=== PATIENT | male | born 1930 | race Caucasian/White ===

== ENCOUNTER 2017-11-11 22:50 | Emergency (ER) | payer MEDICARE, OTHER ==
[2017-11-11] MEDS ORDERED: Nitroglycerin 0.4 MG TAB (25 Tab Bottle) ONE (23:22)
[2017-11-11 23:27] LABS: #Basophils 0.1 thou/uL (0.0-0.2); #Eosinphils 0.3 thou/uL (0.0-0.7); #Lymphocytes 2.3 thou/uL (1.20-3.40); #Monocytes 0.6 thou/uL (0.11-0.59); #Neutrophils 4.2 thou/uL (1.40-6.50); %Eosinophils 4.2 % (0.0-10.0); %Lymphocytes 30.6 % (21.0-51.0); %Monocytes 7.9 % (0.0-10.0); %Neutrophils 56.3 % (42.0-75.0); Hemoglobin 10.9 g/dL (14.0-18.0); Mean Corpuscular Hemoglobin 31.3 pg (27.0-31.0); Mean Corpuscular Volume 94.8 fl (80.0-94.0); Mean Platelet Volume 6.4 fL (7.4-10.4); Platelet Count 200 thou/uL (130-400); RBC Distribution Width 12.1 % (11.5-14.5); Red Blood Cell (RBC) Count 3.49 mill/uL (4.70-6.10); White Blood Cell (WBC) Count 7.4 thou/uL (4.8-10.8)
--- NOTE | 2017-11-11 23:31 | RAD ---
PORTABLE CHEST: 11/11/17 HISTORY: Chest pain. Lung humphries are clear. Heart and mediastinum are unremarkable. IMPRESSION: No acute finding. POS: [facility]
[2017-11-11 23:50] LABS: Anion Gap 13 mmol/L (10-20); BUN (Urea Nitrogen) 26 mg/dL (8.4-25.7); Calc. Creatinine Clearance 0 mL/min (70-130); Carbon Dioxide 25 mmol/L (23-31); Chloride 103 mmol/L (98-107); Estimated GFR-MDRD 61; Sodium 137 mmol/L (136-145)
[2017-11-11 23:51] LABS: ALT (SGPT) 13 U/L (8-55); AST (SGOT) 26 U/L (5-34); Albumin 4.1 g/dL (3.4-4.8); Alkaline Phosphatase 99 U/L (40-150); Bilirubin, Total 0.7 mg/dL (0.2-1.2); CK (CPK) 57 U/L (30-200); Calcium 9.6 mg/dL (7.8-10.44); Glucose 133 mg/dL (83-110); Lipase 43 U/L (8-78); Protein, Total 7.1 g/dL (5.8-8.1)
[2017-11-11 23:57] LABS: CKMB 0.7 ng/mL (0-6.6); Troponin I 0.017 ng/mL (< 0.028)
== END 2017-11-12 00:12 | disposition left against medical advice (07) ==
LOC: ERS 22:50
DX: R07.9 Chest pain, unspecified (principal); E78.5 Hyperlipidemia, unspecified; I10 Essential (primary) hypertension
CPT/HCPCS: 71045; 80053; 82553; 83690; 84484; 85025; 93005

== ENCOUNTER 2017-12-23 15:13 | Observation (INO) | payer MEDICARE, OTHER ==
[2017-12-23 15:33] LABS: #Basophils 0.1 thou/uL (0.0-0.2); #Eosinphils 0.2 thou/uL (0.0-0.7); #Lymphocytes 0.8 thou/uL (1.20-3.40); #Monocytes 0.3 thou/uL (0.11-0.59); %Basophils 1.1 % (0.0-1.0); %Eosinophils 4.6 % (0.0-10.0); %Lymphocytes 15.3 % (21.0-51.0); %Monocytes 5.8 % (0.0-10.0); %Neutrophils 73.2 % (42.0-75.0); Mean Corpuscular HGB CONC 33.7 g/dL (32.0-36.0); Mean Corpuscular Hemoglobin 30.7 pg (27.0-31.0); Mean Corpuscular Volume 91.1 fl (80.0-94.0); Mean Platelet Volume 5.7 fL (7.4-10.4); Platelet Count 226 thou/uL (130-400); RBC Distribution Width 12.7 % (11.5-14.5); White Blood Cell (WBC) Count 5.5 thou/uL (4.8-10.8)
[2017-12-23 15:57] LABS: ALT (SGPT) 28 U/L (8-55); AST (SGOT) 68 U/L (5-34); Albumin 3.9 g/dL (3.4-4.8); Alkaline Phosphatase 334 U/L (40-150); Anion Gap 14 mmol/L (10-20); BUN (Urea Nitrogen) 26 mg/dL (8.4-25.7); Bilirubin, Total 0.8 mg/dL (0.2-1.2); CK (CPK) 235 U/L (30-200); Calc. Creatinine Clearance 0 mL/min (70-130); Calcium 8.9 mg/dL (7.8-10.44); Carbon Dioxide 26 mmol/L (23-31); Chloride 97 mmol/L (98-107); Estimated GFR-MDRD 70; Glucose 116 mg/dL (83-110); Potassium 3.3 mmol/L (3.5-5.1); Protein, Total 7.9 g/dL (5.8-8.1); Sodium 134 mmol/L (136-145)
[2017-12-23 16:01] LABS: CKMB 0.9 ng/mL (0-6.6); Troponin I 0.015 ng/mL (< 0.028)
[2017-12-23] MEDS ORDERED: Potassium Chloride 20 MEQ TAB ONE (17:29)
[2017-12-23 19:52] LABS: Bilirubin Negative (Negative); Blood, Urine Trace (Negative); Clarity CLEAR (Clear); Glucose, Urine (Dipstick) Negative (Negative); Leukocyte Negative (Negative); Nitrite Negative (Negative); Protein, Urine (Dipstick) 30 mg/dL (Neg-Trace); Specific Gravity, Urine 1.013 (1.002-1.036)
[2017-12-23 19:54] LABS: Bacteria/HPF None Seen HPF (None Seen); Hyaline Casts/LPF 0-3 HYALINE CAST LPF (0-3 Hyaline); RBC/HPF 0-3 HPF (0-3); Squamous Epithelial 0-3 HPF (0-3); WBC/HPF 0-3 HPF (0-3)
[2017-12-23 19:58] LABS: Renal Epithelial None Seen HPF (0-3); Transitional Epithelial NONE SEEN HPF (0-3)
[2017-12-23] MEDS ORDERED: Sodium Chloride 0.9% 1,000 ML IV SCH (21:30)
[2017-12-23 23:37] VITALS: BMI 21.7
[2017-12-24] MEDS ORDERED: Milk Of Magnesia 30 ML UDCUP PO PRN (00:05)
[2017-12-24] MEDS ORDERED: Mag-Al 1200 mg/1200 mg/30 ML UDCUP PO PRN (00:05)
[2017-12-24] MEDS ORDERED: Ondansetron HCl/PF 4 MG/2 ML Vial IVP PRN (00:05)
[2017-12-24] MEDS ORDERED: Acetaminophen 325 MG TAB PO PRN (00:05)
[2017-12-24] MEDS ORDERED: Senokot 8.6 MG TAB PO PRN (00:05)
[2017-12-24] MEDS ORDERED: Loperamide HCl 2 MG CAP PO PRN (00:05)
[2017-12-24] MEDS ORDERED: HYDROcodone/Acetaminophen 5/325 mg Tablet PO PRN (00:05)
[2017-12-24] MEDS: Sodium Chloride 0.9% 1,000 ML IV SCH ×2 (00:30→12:20)
--- NOTE | 2017-12-24 03:32 | HP ---
DATE OF SERVICE: 12/23/2017 PRIMARY CARE PHYSICIAN: [facility] call admission. REASON FOR ADMISSION: Generalized weakness. HISTORY OF PRESENT ILLNESS: An 87-year-old male who is a very poor historian, who was brought to [facility] room for generalized weakness. Paramedics brought him here. He has a history of bladder canc er and the patient is getting radiation therapy. The patient was hypertensive when paramedics took h im from home. The patient has weight loss about 50 pounds. He has very poor appetite. He denies an y diarrhea. He denies any nausea or vomiting. He denies any fever or chills. He denies any chest p ain, palpitation, shortness of breath. He denies any UTI symptoms. He denies any constipation, diar ab. He denies any fall or trauma or syncope or loss of consciousness. He denies any pain anywhere in his body. REVIEW OF SYSTEMS: The following complete review of systems was negative, unless otherwise mentioned in the HPI or below: Constitutional: Weight loss or gain, ability to conduct usual activities. Skin: Rash, itching. Eyes: Double vision, pain. ENT/Mouth: Nose bleeding, neck stiffness, pain, tenderness. Cardiovascular: Palpitations, dyspnea on exertion, orthopnea. Respiratory: Shortness of breath, wheezing, cough, hemoptysis, fever or night sweats. Gastrointestinal: Poor appetite, abdominal pain, heartburn, nausea, vomiting, constipation, or diarr hea. Genitourinary: Urgency, frequency, dysuria, nocturia. Musculoskeletal: Pain, swelling. Neurologic/Psychiatric: Anxiety, depression. Allergy/Immunologic: Skin rash, bleeding tendency. Please see my HPI for pertinent positive and negative. All other review of systems reviewed and nega tive except as mentioned in the HPI. The review of system is limited because of his level of cogniti ve status. ALLERGIES: No known drug allergy. CURRENT HOME MEDICATIONS: Aspirin 81 mg p.o. daily, Crestor 10 mg p.o. daily, Corgard 20 mg p.o. kristel ly, Tylenol No. 3 one tablet p.o. q.6 hourly p.r.n. PAST MEDICAL HISTORY: Hypertension, dyslipidemia, history of bladder cancer. PAST SURGICAL HISTORY: Bladder cancer surgery. PAST PSYCHIATRIC HISTORY: Reviewed and negative. SOCIAL HISTORY: The patient drinks alcohol socially and occasionally. The patient denies any smokin g. He denies any other illicit drug abuse. FAMILY HISTORY: No strong family history of premature coronary artery disease, stroke or cancer. ALLERGIES: No known drug allergy. EMERGENCY ROOM COURSE: The patient was given potassium chloride 40 mEq p.o. and IV fluid. PHYSICAL EXAMINATION: VITAL SIGNS: On arrival, blood pressure 176/88, pulse 109, respiratory rate 20, temperature 98.4, sa turation 100% on room air, weight 77.1 kilograms. GENERAL: The patient is currently alert, awake, chronically ill, no obvious acute distress. HEAD: Normocephalic, atraumatic. EYES: Pupils are round and reactive to light. Extraocular muscle intact. ENT: Oropharynx within normal limits. Dry appearing mucous membranes. No oral lesion, no pharyngea l erythema, no exudate. NECK: Supple, no JVD, no thyromegaly, no carotid bruit, no meningeal signs of irritation. LUNGS: Clear to auscultation without any rhonchi or rales. CARDIAC: S1, S2 appears regular without any murmur. ABDOMEN: Soft, bowel sounds present, nontender, nondistended. No organomegaly, no mass, no suprapub ic tenderness. BACK: Unremarkable, no CVA tenderness. EXTREMITIES: Upper extremity, passive movement of all joints are normal. Lower extremities, no bushra a. Good peripheral pulsation. SKIN: No skin rash. HEMATOLOGICAL: No lymphadenopathy. PSYCHIATRIC: Normal affect. SIGNIFICANT LABORATORY DATA: 1. EKG showing sinus tachycardia, left ventricular hypertrophy. 2. CBC: WBC 5.5, hemoglobin 11.0, platelet 226. 3. CK 235 4. BMP: Sodium 134, potassium 3.3, chloride 97, carbon dioxide 26, anion gap 14, BUN 26, creatinine 1.01, glucose 116, calcium 8.9. 5. LFT: AST 68, alkaline phosphatase of 338, ALT 28, albumin 3.9, protein 7.9, bilirubin 0.8, calci um 8.9. BNP 35.4, CK-MB 0.9, troponin 0.015. ASSESSMENT AND PLAN: IMPRESSION: 1. Generalized weakness. 2. Hyponatremia. 3. Hypokalemia. 4. Elevated total CK. 5. Abnormal liver function test. 6. History of bladder cancer. 7. Hypertension. 8. Dyslipidemia. 9. Hypothyroidism. 10. Benign enlargement of prostate. 11. Dyslipidemia. PLAN: 1. Observation to medical floor. PT, OT evaluation. transition manager consultation for discharge planni ng. Resume intravenous fluid at 75 mL per hour. 2. Deep venous thrombosis prophylaxis not needed because we are expecting discharge in 24 hours. 3. Gastrointestinal prophylaxis. Pepcid 20 mg IV b.i.d. 4. Code status: The patient is FULL CODE. The patient does not have any surrogate decision maker a t this point. Disposition plan based on clinical course. We are expecting patient's stay in hospital 24-48 hours. Plan of care discussed with the patient in detail.
[2017-12-24 05:55] LABS: #Eosinphils 0.2 thou/uL (0.0-0.7); #Lymphocytes 0.8 thou/uL (1.20-3.40); #Monocytes 0.4 thou/uL (0.11-0.59); #Neutrophils 3.3 thou/uL (1.40-6.50); %Basophils 0.4 % (0.0-1.0); %Eosinophils 4.6 % (0.0-10.0); %Lymphocytes 16.8 % (21.0-51.0); %Monocytes 7.7 % (0.0-10.0); %Neutrophils 70.5 % (42.0-75.0); Hemoglobin 9.6 g/dL (14.0-18.0); Mean Corpuscular HGB CONC 33.2 g/dL (32.0-36.0); Mean Corpuscular Hemoglobin 30.4 pg (27.0-31.0); Mean Corpuscular Volume 91.3 fl (80.0-94.0); Platelet Count 211 thou/uL (130-400); RBC Distribution Width 12.7 % (11.5-14.5); Red Blood Cell (RBC) Count 3.18 mill/uL (4.70-6.10); White Blood Cell (WBC) Count 4.7 thou/uL (4.8-10.8)
[2017-12-24 06:16] LABS: Anion Gap 11 mmol/L (10-20); BUN (Urea Nitrogen) 17 mg/dL (8.4-25.7); Calc. Creatinine Clearance 63 mL/min (70-130); Calcium 7.8 mg/dL (7.8-10.44); Carbon Dioxide 25 mmol/L (23-31); Chloride 101 mmol/L (98-107); Estimated GFR-MDRD Greater than 90; Glucose 132 mg/dL (83-110); Potassium 3.5 mmol/L (3.5-5.1); Sodium 133 mmol/L (136-145)
[2017-12-24] MEDS: Aspirin 81 mg Enteric Coated Tablet PO SCH (09:03)
[2017-12-24] MEDS: Finasteride 5 MG TAB PO SCH (09:04)
[2017-12-24] MEDS: Nadolol 40 MG TAB PO SCH (09:04)
[2017-12-24] MEDS: Rosuvastatin 10 MG TAB PO SCH (09:05)
[2017-12-24] MEDS: Famotidine/PF 20 mg/2ml Vial SLOW IVP SCH ×2 (09:05→21:00)
--- NOTE | 2017-12-24 15:37 | EKG ---
Test Reason : Blood Pressure : / mmHG Vent. Rate : 105 BPM Atrial Rate : 105 BPM P-R Int : 138 ms QRS Dur : 080 ms QT Int : 352 ms P-R-T Axes : 029 -52 022 degrees QTc Int : 465 ms Sinus tachycardia Left axis deviation Minimal voltage criteria for LVH, may be normal variant Inferior infarct , age undetermined Abnormal ECG Confirmed by RACHELL FRANCES, UMAIR White ([id number]), film editor supervisor ZIGGY LESLIE ([id number]) on 12/24/2017 3:37:04 PM Referred By: Confirmed By:UMAIR LOVETT MD
--- NOTE | 2017-12-24 16:52 | PDOC.PN ---
- Subjective Encounter Start Date: 12/24/17 Encounter Start Time: 11:00 Patient seen and examined. No new complaints. No overnight events. Feels gen weak. - Objective Resuscitation Status: Resuscitation Status FULL:Full Resuscitation MAR Reviewed: Yes Vital Signs & Weight: Vital Signs (12 hours) Temp Pulse Resp BP Pulse Ox 12/24/17 16:15 97.8 F 80 20 169/81 H 96 12/24/17 12:06 98.3 F 79 24 H 177/84 H 97 12/24/17 08:05 98 F 107 H 24 H 12/24/17 07:48 98 F 107 H 24 H 161/80 H 93 L Weight Admit Weight 147 lb Weight 147 lb I&O: 12/23/17 12/24/17 12/25/17 06:59 06:59 06:59 Intake Total 270 Output Total 1 Balance 269 Result Diagrams: 12/24/17 05:16 12/24/17 05:16 Phys Exam - Physical Examination Constitutional: NAD Respiratory: no wheezing, no rhonchi Cardiovascular: RRR, no rub Gastrointestinal: soft, non-tender, positive bowel sounds Musculoskeletal: no edema Neurological: moves all 4 limbs (Feels gen weak.) Dx/Plan - Plan DVT proph w/SCDs IMPRESSION: 1. Generalized weakness - multifactorial 2. h/o bladder cancer 3. Electrolyte abn - hyponatremia/hypokalemia 4. Abn LFTs 5. BPH/Dyslipidemia PLAN: * Resume Prednisone at 20 mg daily (Patient takes 10 mg daily) * Resume Casodex * Cont therapy * Add Ensure * Will consider Megace if needed * CMP in AM * Check TSH * Add Vit B12/Folic acid * Rehab eval Review of Systems - Review of Systems Respiratory: negative: Cough, Dry, Shortness of Breath, Hemoptysis, SOB with Excertion, Pleuritic Pain, Sputum, Wheezing Cardiovascular: negative: chest pain, palpitations, orthopnea, paroxysmal nocturnal dyspnea, edema, light headedness - Medications/Allergies Allergies/Adverse Reactions: Allergies Allergy/AdvReac Type Severity Reaction Status Date / Time No Known Allergies Allergy Verified 12/23/17 23:33 Medications: Current Medications Acetaminophen (Tylenol) 650 mg PO Q4H PRN PRN Reason: Headache/Fever or Pain Acetaminophen/Codeine Phosphate (Tylenol #3) 1 tab PO Q6H PRN PRN Reason: Pain >3 Al Hydroxide/Mg Hydroxide (Maalox) 30 ml PO Q6H PRN PRN Reason: Heartburn or Indigestion Aspirin (Ecotrin) 81 mg PO DAILY [facility] Last Admin: 12/24/17 09:03 Dose: 81 mg Bicalutamide (Casodex) 50 mg PO DAILY [facility] Famotidine (Pepcid) 20 mg SLOW IVP Q12HR [facility] Last Admin: 12/24/17 09:05 Dose: 20 mg Finasteride (Proscar) [facility] [place] Last Admin: 12/24/17 09:04 Dose: 5 mg Sodium Chloride (Normal Saline 0.9%) 1,000 mls @ 70 mls/hr IV .[id number] [facility] Last Admin: 12/24/17 12:20 Dose: 1,000 mls Loperamide HCl (Imodium) 2 mg PO PRN PRN PRN Reason: Diarrhea/Loose Stools Magnesium Hydroxide (Milk Of Magnesium) 30 ml PO DAILYPRN PRN PRN Reason: Constipation Nadolol (Corgard) [facility] [place] Last Admin: 12/24/17 09:04 Dose: 20 mg Ondansetron HCl (Zofran) 4 mg IVP Q6H PRN PRN Reason: Nausea/Vomiting Prednisone (Prednisone) 20 mg PO ONE [facility] Prednisone (Prednisone) 20 [address] QA-[facility] Rosuvastatin Calcium (Crestor) 10 mg PO DAILY [facility] Last Admin: 12/24/17 09:05 Dose: 10 mg Senna (Senokot) 2 tab PO HSPRN PRN PRN Reason: Constipation
[2017-12-24] MEDS ORDERED: predniSONE 20 MG TAB PO SCH (17:00)
[2017-12-25] MEDS: Sodium Chloride 0.9% 1,000 ML IV SCH ×2 (01:00→16:00)
[2017-12-25 05:01] LABS: ALT (SGPT) 20 U/L (8-55); AST (SGOT) 38 U/L (5-34); Alkaline Phosphatase 306 U/L (40-150); Anion Gap 11 mmol/L (10-20); BUN (Urea Nitrogen) 14 mg/dL (8.4-25.7); Bilirubin, Total 0.6 mg/dL (0.2-1.2); CK (CPK) 121 U/L (30-200); Calc. Creatinine Clearance 63 mL/min (70-130); Calcium 7.6 mg/dL (7.8-10.44); Carbon Dioxide 21 mmol/L (23-31); Chloride 105 mmol/L (98-107); Estimated GFR-MDRD Greater than 90; Globulin 3.2 g/dL (2.4-3.5); Glucose 162 mg/dL (83-110); Potassium 3.8 mmol/L (3.5-5.1); Protein, Total 6.2 g/dL (5.8-8.1); Sodium 133 mmol/L (136-145)
[2017-12-25 06:22] LABS: Folate (Folic Acid) 9.8 ng/mL (7.0-31.4)
[2017-12-25] MEDS ORDERED: predniSONE 20 MG TAB PO SCH (08:00)
--- NOTE | 2017-12-25 08:47 | PDOC.PN ---
- Subjective Encounter Start Date: 12/25/17 Encounter Start Time: 08:45 Mr. Gordon was seen today in follow-up. He says today was the first day he felt like eating anything. He notes some pain on hisright side, but her related that to his bone cancer. - Objective Resuscitation Status: Resuscitation Status FULL:Full Resuscitation MAR Reviewed: Yes Vital Signs & Weight: Vital Signs (12 hours) Temp Pulse Resp BP Pulse Ox 12/25/17 07:36 97.4 F L 66 20 140/66 96 12/25/17 04:04 96.7 F L 72 16 118/63 92 L Weight Admit Weight 147 lb Weight 147 lb I&O: 12/24/17 12/25/17 12/26/17 06:59 06:59 06:59 Intake Total 270 2530 Output Total 1 Balance 269 2530 Result Diagrams: 12/24/17 05:16 12/25/17 04:21 Phys Exam - Physical Examination HEENT: PERRLA Respiratory: no wheezing, no rales, no rhonchi, clear to auscultation bilateral Cardiovascular: RRR, no significant murmur Gastrointestinal: soft, non-tender, positive bowel sounds Musculoskeletal: no edema Dx/Plan (1) Generalized weakness Code(s): R53.1 - WEAKNESS Status: Acute (2) Hyponatremia Code(s): E87.1 - HYPO-OSMOLALITY AND HYPONATREMIA Status: Acute (3) Hypokalemia Code(s): E87.6 - HYPOKALEMIA Status: Acute (4) Bladder cancer metastasized to bone Code(s): C67.9 - MALIGNANT NEOPLASM OF BLADDER, UNSPECIFIED; C79.51 - SECONDARY MALIGNANT NEOPLASM OF BONE Status: Acute - Plan * Generalized weakness and poor appetite- patient has noted some improvement in his appetite * Will add Megace- discontinue Prednisone * Hyponatremia- mild- will continue in encourage oral intake, continue Saline infusion * Severe Deconditioning- continue PT/OT and await Rehab screen.
[2017-12-25] MEDS: Cyanocobalamin (Vitamin B-12) 1,000 MCG TAB PO SCH (09:05)
[2017-12-25] MEDS: Rosuvastatin 10 MG TAB PO SCH (09:05)
[2017-12-25] MEDS: Nadolol 40 MG TAB PO SCH (09:06)
[2017-12-25] MEDS: Megestrol Acetate 40 MG TAB PO SCH ×2 (09:06→20:21)
[2017-12-25] MEDS: Aspirin 81 mg Enteric Coated Tablet PO SCH (09:06)
[2017-12-25] MEDS: Folic Acid 1 MG TAB PO SCH (09:07)
[2017-12-25] MEDS: Finasteride 5 MG TAB PO SCH (09:07)
[2017-12-25] MEDS: Famotidine 20 MG TAB PO SCH (09:07)
[2017-12-25] MEDS: pyridOXINE 50 MG (B6) TAB PO SCH (09:07)
[2017-12-25] MEDS: Bicalutamide 50 MG TAB PO SCH (09:07)
[2017-12-25] MEDS ORDERED: predniSONE 5 MG TAB PO SCH (09:30)
[2017-12-25] MEDS: Enoxaparin Sodium 40 MG/0.4 ML SYRINGE SC SCH (10:00)
[2017-12-26] MEDS: Acetaminophen/Codeine 30-300mg Tablet PO PRN ×2 (01:39→10:49)
[2017-12-26] MEDS: Sodium Chloride 0.9% 1,000 ML IV SCH (05:27)
[2017-12-26 06:20] LABS: Anion Gap 9 mmol/L (10-20); BUN (Urea Nitrogen) 15 mg/dL (8.4-25.7); Calc. Creatinine Clearance 62 mL/min (70-130); Carbon Dioxide 21 mmol/L (23-31); Chloride 106 mmol/L (98-107); Estimated GFR-MDRD 90; Glucose 108 mg/dL (83-110); Potassium 3.5 mmol/L (3.5-5.1); Sodium 132 mmol/L (136-145)
--- NOTE | 2017-12-26 07:55 | PDOC.PN ---
- Subjective Encounter Start Date: 12/26/17 Encounter Start Time: 07:53 Mr. Gordon was seen today in follow-up. He says he was able to eat a little more yesterday. He is still pretty weak. - Objective Resuscitation Status: Resuscitation Status FULL:Full Resuscitation MAR Reviewed: Yes Vital Signs & Weight: Vital Signs (12 hours) Temp Pulse Resp BP Pulse Ox 12/25/17 20:00 97.6 F 72 20 138/67 98 Weight Admit Weight 147 lb Weight 147 lb I&O: 12/25/17 12/26/17 12/27/17 06:59 06:59 06:59 Intake Total 2530 2340 Output Total 400 Balance 2530 1940 Result Diagrams: 12/24/17 05:16 12/26/17 05:21 Phys Exam - Physical Examination HEENT: PERRLA Respiratory: no wheezing, no rales, no rhonchi, clear to auscultation bilateral Cardiovascular: RRR, no significant murmur Gastrointestinal: soft, non-tender, positive bowel sounds Musculoskeletal: no edema Dx/Plan (1) Generalized weakness Code(s): R53.1 - WEAKNESS Status: Acute (2) Hyponatremia Code(s): E87.1 - HYPO-OSMOLALITY AND HYPONATREMIA Status: Acute (3) Hypokalemia Code(s): E87.6 - HYPOKALEMIA Status: Acute (4) Bladder cancer metastasized to bone Code(s): C67.9 - MALIGNANT NEOPLASM OF BLADDER, UNSPECIFIED; C79.51 - SECONDARY MALIGNANT NEOPLASM OF BONE Status: Chronic - Plan * Hyponatremia- will add salt tabs, and encouraged oral intake * Megace has been added * Continue PT/OT for severe deconditioning * Awaiting Rehab screen
[2017-12-26] MEDS ORDERED: predniSONE 5 MG TAB PO SCH (08:00)
[2017-12-26] MEDS: Sodium Chloride 1 GM TAB PO SCH ×2 (09:41→17:13)
[2017-12-26] MEDS: Aspirin 81 mg Enteric Coated Tablet PO SCH (09:43)
[2017-12-26] MEDS: Bicalutamide 50 MG TAB PO SCH (09:43)
[2017-12-26] MEDS: Enoxaparin Sodium 40 MG/0.4 ML SYRINGE SC SCH (09:44)
[2017-12-26] MEDS: Famotidine 20 MG TAB PO SCH (09:44)
[2017-12-26] MEDS: Cyanocobalamin (Vitamin B-12) 1,000 MCG TAB PO SCH (09:44)
[2017-12-26] MEDS: Nadolol 40 MG TAB PO SCH (09:45)
[2017-12-26] MEDS: Finasteride 5 MG TAB PO SCH (09:45)
[2017-12-26] MEDS: Megestrol Acetate 40 MG TAB PO SCH (09:45)
[2017-12-26] MEDS: Folic Acid 1 MG TAB PO SCH (09:45)
[2017-12-26] MEDS: Rosuvastatin 10 MG TAB PO SCH (09:46)
[2017-12-26] MEDS: pyridOXINE 50 MG (B6) TAB PO SCH (09:46)
[2017-12-26 12:23] VITALS: BP 131/64; TEMP 98.2
[2017-12-26] MEDS ORDERED: Bisacodyl 10 MG SUPP PR PRN (13:09)
--- NOTE | 2017-12-27 00:42 | DIS ---
DATE OF ADMISISON: 12/23/2017 DATE OF DISCHARGE: 12/26/2017 PRIMARY CARE PHYSICIAN: The patient currently does not have a primary care physician. Date of admission: DISPOSITION: Inpatient rehab at [facility]. DISCHARGE DIAGNOSES: 1. Generalized weakness. 2. Severe deconditioning. 3. Mild hyponatremia. 4. History of metastatic bladder cancer. 5. Hypertension. 6. Dyslipidemia. DISCHARGE MEDICATIONS: The patient was placed on Megace 40 mg twice a day, vitamin B6 of 50 mg daily , folic acid 1 mg daily, Compazine 5 mg t.i.d. as needed, prednisone 10 mg daily, nadolol 20 mg daily , finasteride 4 mg daily, bicalutamide 50 mg daily, aspirin 81 mg daily, Tylenol #3 q.6 hours as need ed and Zytiga 250 mg daily. CODE STATUS: FULL CODE. ALLERGIES: No known drug allergies. HOSPITAL COURSE: Mr. Gordon is a pleasant 87-year-old gentleman who came to the emergency room due to generalized weakness and poor appetite. He was evaluated in the ER. There were no obvious signs of infection. He had some anemia, but it was a very mild anemia and not likely to have caused his sy mptoms. He also had a mild hyponatremia and an admission sodium of approximately 134. It was felt t hat the generalized weakness is likely the direct result of poor oral intake. He was started on Gerald ce with some improvement. He did start to eat more while in the hospital and he was hoping to improv e his strength enough to make a trip to [place] where he planned to relocate closer to his son in an assisted living and hopefully to resume chemotherapy as well. [facility]
== END 2017-12-26 17:08 | disposition short-term general hospital (02) ==
LOC: ERS 15:13 → ONC 17:50
PROVIDERS: ADMIT Internal Medicine; ATTEND Internal Medicine
DX: R53.1 Weakness (principal); E87.1 Hypo-osmolality and hyponatremia; I10 Essential (primary) hypertension; E78.5 Hyperlipidemia, unspecified; C79.51 Secondary malignant neoplasm of bone; E03.9 Hypothyroidism, unspecified; E87.6 Hypokalemia; N40.0 Benign prostatic hyperplasia without lower urinary tract symptoms; Z85.51 Personal history of malignant neoplasm of bladder; Z79.82 Long term (current) use of aspirin; Z79.52 Long term (current) use of systemic steroids; Z79.899 Other long term (current) drug therapy
CPT/HCPCS: 80048 ×2; 80053 ×2; 82550 ×2; 82553; 82607; 82746; 83735; 83880; 84443; 84484; 85025 ×2; 93005; 96360; 96361 ×4; 96372 ×2; 96375; 96376; 97110; 97116 ×2; 97139 ×5; 99285; G0378 ×2; G8978; G8979; G8987; G8988; 36415; 81003; 81015; J1650; J7506; S0028; S0179